=== PATIENT | male | born 1975 | race Caucasian/White ===

== ENCOUNTER → 2016-05-22 | Outpatient (CLI) | payer SELFPAY ==
--- NOTE | 2016-05-22 10:22 | RAD ---
Frontal and lateral views of the right tibia/fibula. Indication: FX Comparison: April 18, 2016. Impression: Distal tibial fracture status post ORIF redemonstrated with stable alignment. Slightly progressed periostitis and callus formation, however fracture remains incompletely united at this time. Comminuted segmental proximal fibular metadiaphysis fracture redemonstrated with stable alignment and progressive callus formation but remains incomplete united at this time. No new fracture or hardware complication identified. Electronically signed by: Doug Henry MD 05/22/2016 10:20
== END ==
LOC: RAD 09:32
PROVIDERS: ATTEND Orthopaedic Surgery
DX: S82.201D Unspecified fracture of shaft of right tibia, subsequent encounter for closed fracture with routine healing (principal)